=== PATIENT | male | born 1980 | race African-American/Black ===

== ENCOUNTER 2021-03-03 19:55 | Emergency (ER) | payer OTHER ==
[2021-03-03 20:27] VITALS: BP 146/91; PULSE 78; TEMP 98.6; BMI 29.2
== END 2021-03-03 21:44 | disposition home or self-care (01) ==
LOC: JER 19:55 → JERFT 19:55
DX: Z20.822 Contact with and (suspected) exposure to COVID-19 (principal)
CPT/HCPCS: 99283-25; C9803; U0003; U0005